=== PATIENT | female | born 1985 | race Caucasian/White ===

== ENCOUNTER 2018-05-31 17:39 | Emergency (ER) | payer OTHER, MEDICAID | END 2018-05-31 20:02 | disposition home or self-care (01) | LOC: M ED 17:39 | DX: R04.0 Epistaxis (principal); S00.83XA Contusion of other part of head, initial encounter; V03.10XA Pedestrian on foot injured in collision with car, pick-up truck or van in traffic accident, initial encounter; Y92.410 Unspecified street and highway as the place of occurrence of the external cause | CPT/HCPCS: 70450 ==

== ENCOUNTER → 2018-08-02 | Outpatient (CLI) | payer BC, OTHER, MEDICAID ==
[~2018-08-02] MED LIST: CYCL10TA PO; IBUP-1022 PO
[2018-08-02 10:26] LABS: BASO % 0.2 % (0.0-1.0); EOS # 0.1 10^3/uL (0.0-0.50); HEMATOCRIT 38.3 % (36.0-47.0); HEMOGLOBIN 13.1 g/dl (12.0-15.5); LYMPH # 1.7 10^3/uL (1.5-4.5); LYMPH % 35.5 % (24.0-44.0); MEAN CORPUSCULAR HEMOGLOBIN 32.4 pg (27.0-33.0); MEAN CORPUSCULAR HGB CONC 34.2 g/dl (32.0-36.5); MEAN CORPUSCULAR VOLUME 94.8 fl (80.0-96.0); MONO # 0.6 10^3/uL (0.0-0.8); MONO % 13.4 % (0.0-5.0); NEUTROPHILS # 2.3 10^3/uL (1.8-7.7); NEUTROPHILS % 47.7 % (36.0-66.0); PLATELET COUNT, AUTOMATED 244 10^3/uL (150-450); RED BLOOD COUNT 4.04 10^6/uL (4.00-5.40); WHITE BLOOD COUNT 4.7 10^3/uL (4.0-10.0)
[2018-08-02 10:40] LABS: HEMOGLOBIN A1c 4.6 %
[2018-08-02 10:54] LABS: ALBUMIN 4.1 GM/DL (3.2-5.2); ALT/SGPT 30 U/L (12-78); BILIRUBIN,TOTAL 0.6 MG/DL (0.2-1.0); BLOOD UREA NITROGEN 8 MG/DL (7-18); CALCIUM LEVEL 9.2 MG/DL (8.5-10.1); CARBON DIOXIDE LEVEL 26 MEQ/L (21-32); CHLORIDE LEVEL 108 MEQ/L (98-107); CREATININE FOR GFR 0.55 MG/DL (0.55-1.30); FERRITIN 54 NG/ML (8-252); GLOMERULAR FILTRATION RATE > 60.0 (>60); GLUCOSE, FASTING 90 MG/DL (70-100); IRON (FE) 128 UG/DL (50-170); PERCENT SATURATION 48.7 % (13.2-45.0); POTASSIUM SERUM 4.8 MEQ/L (3.5-5.1); SODIUM LEVEL 141 MEQ/L (136-145); TOTAL IRON BINDING CAPACITY 263 UG/DL (250-450); TOTAL PROTEIN 7.5 GM/DL (6.4-8.2)
[2018-08-02 10:58] LABS: TOTAL 25(OH) VITAMIN D 23.5 NG/ML (30.0-100.0)
== END ==
LOC: M SMT 08:46
PROVIDERS: ATTEND Physician Assistant
DX: R53.83 Other fatigue (principal); Z13.0 Encounter for screening for diseases of the blood and blood-forming organs and certain disorders involving the immune mechanism; Z13.1 Encounter for screening for diabetes mellitus

== ENCOUNTER → 2019-05-03 | Outpatient (REF) | payer OTHER, MEDICAID | LOC: M SFHCPLAZ 13:05 | PROVIDERS: ATTEND Dermatology | DX: D22.5 Melanocytic nevi of trunk (principal) ==

== ENCOUNTER → 2019-06-24 | Outpatient (CLI) | payer BC, OTHER ==
--- NOTE | 2019-06-24 11:16 | REP ---
DIGITAL DIAGNOSTIC BILATERAL MAMMOGRAPHY, 3D TOMOGRAPHY, AND FOCUSED LEFT BREAST SONOGRAPHY: HISTORY: Left breast lump inferiorly and medially. MAMMOGRAPHIC FINDINGS: A skin marker is affixed to the skin at the site of the palpable lump. Routine views are augmented by magnified focal spot compression images of the left breast in CC, true mediolateral, and MLO projections. There is no evidence of soft tissue mass visible mammographically at the site of the palpable lump or elsewhere. Breast parenchyma is extremely dense in a pattern which may inhibit the sensitivity of mammography. No microcalcification, architectural distortion, or worrisome skin changes appreciated. 3D tomography shows no additional abnormality. SONOGRAPHIC FINDINGS: The left breast is scanned from 6-o'clock to 8-o'clock position with the palpable area at approximately 7-o'clock position. Heterogeneous fibroglandular background echotexture is seen. No cyst or mass is observed sonographically. No sonographically suspicious finding. IMPRESSION: BIRADS 1: BI-RADS/ACR category 1 mammogram. Negative Mammogram. BI-RADS category 1 negative findings. Clinical followup is advised. This mammogram was interpreted with the aid of an FDA-approved computer-aided detection system. The patient states she had a clinical breast exam in May,. The patient letter being requested is M2, dense Screening mammography recommended at age 42. Electronically Signed by Nael Angela MD 06/24/2019 12:08 P
== END ==
LOC: M RAD 09:16
PROVIDERS: ATTEND Obstetrics & Gynecology
DX: N63.24 Unspecified lump in the left breast, lower inner quadrant (principal)
CPT/HCPCS: 76642; 77066; G0279

== ENCOUNTER → 2019-12-28 | Outpatient (CLI) | payer BC, OTHER ==
[~2019-12-28] MED LIST changes: +CYCL-707 PO; -CYCL10TA PO
== END ==
LOC: M LABSMTC 10:02
PROVIDERS: ATTEND Family Medicine
DX: Z11.59 Encounter for screening for other viral diseases (principal)
CPT/HCPCS: C9803; U0003

== ENCOUNTER 2020-08-02 22:46 | Inpatient (IN) | payer BC, OTHER ==
[~2020-08-02] VITALS: Ht 162.6 cm; Wt 78.2 kg
[2020-08-02] MEDS ORDERED: PENICILLIN G POTASSIUM IV 5 MU in D5W MINI-BAG PLUS 100 ML IV STA (23:34)
[2020-08-02] MEDS ORDERED: LACTATED RINGER'S 1000 ML IV STA (23:34)
[2020-08-03] VITALS (49 sets, daily range): BP systolic 95–142; BP diastolic 53–83
[2020-08-03 00:11] LABS: HEMATOCRIT 36.8 % (36.0-47.0); HEMOGLOBIN 12.4 g/dl (12.0-15.5); MEAN CORPUSCULAR HEMOGLOBIN 31.2 pg (27.0-33.0); MEAN CORPUSCULAR HGB CONC 33.7 g/dl (32.0-36.5); MEAN CORPUSCULAR VOLUME 92.7 fl (80.0-96.0); PLATELET COUNT, AUTOMATED 208 10^3/uL (150-450); RED BLOOD COUNT 3.97 10^6/uL (4.00-5.40); WHITE BLOOD COUNT 20.3 10^3/uL (4.0-10.0)
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
[2020-08-03] MEDS: PENICILLIN G POTASSIUM IV 2.5 MU in IV 1 EA IV SCH ×4 (04:24→16:30)
[2020-08-03] MEDS: LR 1,000 ML IV SCH ×3 (04:24→16:30)
--- NOTE | 2020-08-03 04:47 | IPNPDOC ---
Obstetrical Progress Note Date of Service Aug 03, 2020 Subjective States contractions feel the same some are stronger but she doesn't feel she has made change. She was able to rest in between contractions. Objective Bedside U/S shows vertex, OP presentation. AROM for small amount of meconium stained fluid. Vital Signs Label Value Date Time Patient Temperature 98.8 degrees F 08/03/20221 Pulse 87 08/03/20221 Blood Pressure Assessment 120/72 (88) 08/03/20221 Source Automatic Cuff (NIBP) Patient Temperature 98.6 degrees F 08/03/20422 Pulse 88 08/03/20422 Blood Pressure Assessment 124/76 (92) 08/03/20422 Source Automatic Cuff (NIBP) Assessment Heart Rate (FHR): 135 Variability: Moderate Accelerations: Positive Decelerations: None Heart Rate Tracing: Category I Tocometer Contractions: Yes Frequency: regular, other (4-5 min) Duration: greater than 60 seconds Strength: palpated as mod/strong, resting tone palp/soft Sterile Vaginal Examination Dilation: 6 cm Effacement (%): 100% Station: 0 Cervical Consistency: Soft Cervical Position: Anterior Postion/Presentation: Cephalic presentation (OP by ultrasound) Assessment and Plan Age: 35 : 2 Term: 0 Pre-term: 0 Abortions: 1 Livin EGA at Admission: 42.0 Status: Reassuring Group B Streptococcus: Positive Anticipate: Vaginal Delivery NYDIA MATHUR CNM Aug 03, 2020 04:46
--- NOTE | 2020-08-03 09:13 | IPNPDOC ---
Obstetrical Progress Note Date of Service Aug 03, 2020 Subjective Lesli is feeling stronger contractions but becoming tired. Objective Controlled breathing through contractions, tolerating contractions well. Vital Signs Date Time Temp Pulse Resp B/P (MAP) Pulse Ox O2 Delivery O2 Flow Rate FiO2 08/03/20 07:47 98.3 76 18 126/68 (87) Assessment Heart Rate (FHR): 140 Variability: Moderate Accelerations: Positive Decelerations: None Heart Rate Tracing: Category I Tocometer Contractions: Yes Frequency: other (7-8 minutes) Duration: greater than 60 seconds Strength: palpated as moderate, resting tone palp/soft Sterile Vaginal Examination Dilation: 6 cm Effacement (%): 100% Station: 0 Cervical Consistency: Soft Cervical Position: Anterior Postion/Presentation: Cephalic presentation Assessment and Plan Age: 35 : 2 Term: 0 Pre-term: 0 Abortions: 1 Livin Weeks & Days 42.0 Status: Reassuring Group B Streptococcus: Positive Anticipate: Vaginal Delivery Additional Comments Discussed options for starting Pitocin and pain management options. Offered C/Section as well. Patient opting to start Pitocin and IV pain management at this time. Jessica Bautista CNM Aug 03, 2020 09:13
[2020-08-03] MEDS ORDERED: LR 1,000 ML IV SCH (09:16)
[2020-08-03] MEDS ORDERED: BUTORPHANOL 2 MG/ML INJ (J0595) IV ONE (09:30)
[2020-08-03] MEDS ORDERED: OXYTOCIN DRIP 30 UNITS in IV 1 EA IV SCH ×2 (09:30→21:24)
[2020-08-03] MEDS ORDERED: PROMETHAZINE INJ 25 MG/ML VIAL (J2550) IV ONE (09:30)
[2020-08-03 10:40] LABS: HIV 1&2 SCREEN CENTAUR NEGATIVE (NEGATIVE)
[2020-08-03] MEDS ORDERED: FENTANYL 2MCG/ML ROPIVACAINE 0.2% IN 0.9% NACL 100ML IVBAG As Ordered ONE (11:49)
[2020-08-03] MEDS ORDERED: REFRIGERATOR IV KEYS XX PRN (13:00)
[2020-08-03] MEDS ORDERED: EPIDURAL/PCA KEYS XX PRN (13:00)
[2020-08-03] MEDS ORDERED: diphenhydrAMINE 50MG/ML VIAL (J1200) IV PRN (13:00)
[2020-08-03] MEDS ORDERED: NALOXONE INJ 0.4MG/1ML VIAL (J2310 PER 1MG) IV PRN (13:00)
[2020-08-03] MEDS ORDERED: EPIDURAL COMMENT XX SCH (13:00)
[2020-08-03] MEDS ORDERED: FENTANYL/ROPIVACAINE/NACL BAG 100 ML EPIDURAL SCH (13:00)
[2020-08-03] MEDS ORDERED: LACTATED RINGER'S 1000 ML IV PRN (13:00)
[2020-08-03] MEDS ORDERED: ONDANSETRON 4MG/2ML VIAL IV PRN (13:00)
--- NOTE | 2020-08-03 16:02 | IPNPDOC ---
Text Note Date of Service The patient was seen on 08/03/20. NOTE Inpatient Subjective: Lesli is comfortable with her epidural and has gotten some sleep. Changing position frequently with peanut ball in place. Denies urge to push. Objective: VS normotensive, afebrile General: Alert and oriented x3. Fetus: 135bpm baseline, moderate variability, positive accelerations, variable and late decelerations [place]: UC every 2-4 minutes, lasting 60-110 seconds, palpated moderate, resting tone soft Pitocin decreased to 8 mu/min. SVE 8/100/+1, anterior, minimal caput noted by NADIA Lopez Plan: Discussed FHT and slow progression of labor with patient and partner. Offered for continuation of Pitocin as long as fetus tolerates or C/Section. Patient opting for continuation of Pitocin and time. Dr Robbins updated and agrees with plan. VS,Fishbone, I+O VS, Fishbone, I+O Laboratory Tests 08/02/20 23:25 Vital Signs Date Time Temp Pulse Resp B/P (MAP) Pulse Ox O2 Delivery O2 Flow Rate FiO2 08/03/20 12:10 74 18 117/78 (91) 08/03/20 10:35 98.1 Jessica Bautista CNM Aug 03, 2020 16:02
[2020-08-03] MEDS: ePHEDrine SULFATE 25 MG/5 ML(5MG/ML) SYRINGE IV PRN ×2 (16:23→16:38)
--- NOTE | 2020-08-03 18:54 | IPNPDOC ---
Text Note Date of Service The patient was seen on 08/03/20. NOTE Inpatient Subjective: Reports feeling intermittent rectal pressure, otherwise comfortable with her epidural. Objective: SVE: 100/+1 by NADIA Lopez Moderate amount of bloody show noted on bed Fetus: 150bpm baseline, moderate variability, positive accelerations, occa sional variable decelerations noted, reassuring, Category 2 FHT [place]: UC every 2-3min, 60-110 seconds long, some coupling of contractions noted Plan: Labor down until Lesli feels urge to push up to 1 hour. VS,Fishbone, I+O VS, Fishbone, I+O Laboratory Tests 08/02/20 23:25 Vital Signs Date Time Temp Pulse Resp B/P (MAP) Pulse Ox O2 Delivery O2 Flow Rate FiO2 08/03/20 18:14 65 125/75 (92) 08/03/20 17:44 98.4 08/03/20 16:47 18 Jessica Bautista CNM Aug 03, 2020 18:54
[2020-08-03] MEDS ORDERED: RHOGAM 300 MCG (1500 IU) INJ (J2790) IM SCH (21:30)
[2020-08-03] MEDS ORDERED: BENZOCAINE 20% HEMORRHOIDAL OINTMENT 28GM TUBE TOP PRN (21:30)
[2020-08-03] MEDS ORDERED: ANUSOL HC CREAM 30GM TOP PRN (21:30)
[2020-08-03] MEDS ORDERED: MOM 30ML SUSPENSION UDC PO PRN (21:30)
[2020-08-03] MEDS ORDERED: ACETAMINOPHEN 500 MG TAB PO PRN (21:30)
[2020-08-03] MEDS ORDERED: DOCUSATE SODIUM 100MG CAPSULE PO PRN (21:30)
[2020-08-03] MEDS ORDERED: IBUPROFEN 600MG TAB PO PRN (21:30)
[2020-08-03] MEDS ORDERED: METHYLERGONOVINE MALEATE 0.2 MG TAB PO PRN (21:30)
[2020-08-03] MEDS ORDERED: IBUPROFEN 800 MG TAB PO PRN (21:30)
[2020-08-03] MEDS ORDERED: ACETAMINOPHEN TAB 650MG DOSE (2X325MG) PO PRN (21:30)
[2020-08-03] MEDS ORDERED: MEASLES,MUMPS,RUBELLA VACCINE INJ (MMR-II) (90707) SC SCH (21:30)
[2020-08-03 21:35] LABS: CORD GAS ABE V -11.1; CORD GAS O2 SAT V 75.4 %; CORD GAS PCO2 V 45.2 mmHg; CORD GAS PH V 7.192 UNITS; CORD GAS SBC V 15.5 MEQ/L; CORD GAS TCO2 V 18.3 MEQ/L
[2020-08-03 21:37] LABS: CORD GAS ABE A -16.4; CORD GAS HCO3 A 15.5 MEQ/L; CORD GAS O2 SAT A 51.1 %; CORD GAS PCO2 A 61.4 mmHg; CORD GAS PH A 7.02 UNITS; CORD GAS PO2 A 30.7 mmHg; CORD GAS SBC A 11.8 MEQ/L; CORD GAS TCO2 A 17.4 MEQ/L
--- NOTE | 2020-08-03 21:44 | DNPDOC ---
[facility] Delivery Note Delivery Note DATE OF DELIVERY: 08/03/2020 @ 2049 PREDELIVERY DIAGNOSIS: 42-0/7 weeks' gestation and labor. POST DELIVERY DIAGNOSIS: Delivered. PROCEDURE: Spontaneous vaginal delivery PROVIDER: Bri Bautista CNM and NADIA Vera ANESTHESIA: Epidural. ESTIMATED BLOOD LOSS: 300 mL. FINDINGS: 7 pound 13 ounce, 3530g Male , Score 7/9, loose nuchal cord times 1, meconium stained fluid. DELIVERY SUMMARY: Lesli is a 35-year-old 2 now para 1-0-1-1 who was admitted to labor and delivery in active labor, stalled at 6cm. Pitocin augmentation and an epidural resulted in full dilation at 1754. head delivered THELMA with restitution to ROT, anterior shoulder delivered with gentle downward traction and corpus followed with ease. Loose nuchal cord was reduced prior to delivery of shoulders. Infant stimulated, spontaneous cries and placed skin to skin on maternal abdomen. Cord clamped x2 and cut by FOB. Cord blood gases and cord blood collected. Arterial cord ph 7.020, base excess - 16.4, Venous cord pH 7.192, base excess -11.1. 3 Vessel cord noted. Intact placenta delivered via Quevedo mechanism at 2103. Fundal massage, IV Pitocin bolus, and 1000mcg Cytotec MO given. Fundus firm at U-1, small flow. Perineum, vagina, and cervix inspected, right labial abrasion repaired with a 3-0 Vicryl with good approximation and hemostasis. Lesli plans to breastfeed her infant. and mother left in stable condition. Sponge, sharp and instrument count correct. Jessica Bautista CNM Aug 03, 2020 21:44
[2020-08-04 06:00] VITALS: BP 109/56
--- NOTE | 2020-08-04 07:35 | IPNPDOC ---
Text Note Date of Service The patient was seen on 08/04/20. NOTE PP#1 Feels well. Happy with experience. . Adequate pain management. Voiding VSS, afebrile, normotensive Breasts soft, nipples intact Fundus firm, NT, down 1 FB Perineum intact Lochia scant, without odor PP #1 Routine care. Anticipate D/C in am VS,Fishbone, I+O VS, Fishbone, I+O Vital Signs Date Time Temp Pulse Resp B/P (MAP) Pulse Ox O2 Delivery O2 Flow Rate FiO2 08/04/20 06:00 97.5 70 14 109/56 (73) I&O- Last 24 Hours up to 6 AM 08/04/20 06:00 Intake Total 240 ml Output Total 1600 ml Balance -1360 ml Jessica Bautista CNM Aug 04, 2020 07:35
[2020-08-04] MEDS ORDERED: INFLUENZA QUADRIVALENT PF VACCINE 0.5ML SYRINGE IM ONE (09:00)
[2020-08-04] MEDS: PRENATAL VITAMINS CHEWABLE TABLET PO SCH (10:45)
[2020-08-04 18:00] VITALS: BP 131/60
[2020-08-05 06:00] VITALS: BP 121/79
[2020-08-05] MEDS: PRENATAL VITAMINS CHEWABLE TABLET PO SCH (09:00)
== END 2020-08-05 17:50 | disposition home or self-care (01) | DRG 560 ==
LOC: M LDO 22:46 → M LDI 23:36 → M OBS 08-03 22:58
PROVIDERS: ADMIT Advanced Practice Midwife; ATTEND Advanced Practice Midwife
PROC: 10E0XZZ Delivery of Products of Conception, External Approach (ICD-10-PCS; principal; 2020-08-03)
DX: O76 Abnormality in fetal heart rate and rhythm complicating labor and delivery (principal); O48.0 Post-term pregnancy; O99.820 Streptococcus B carrier state complicating pregnancy; Z37.0 Single live birth; Z3A.42 42 weeks gestation of pregnancy; O77.0 Labor and delivery complicated by meconium in amniotic fluid; O69.81X0 Labor and delivery complicated by cord around neck, without compression, not applicable or unspecified

== ENCOUNTER → 2020-11-13 | Outpatient (REF) | payer OTHER | LOC: M SFHCWAGY 12:38 | PROVIDERS: ATTEND Advanced Practice Midwife | DX: Z12.4 Encounter for screening for malignant neoplasm of cervix (principal) | CPT/HCPCS: 87624; G0123 ==

== ENCOUNTER → 2020-11-28 | Outpatient (REF) | payer OTHER | LOC: M SFHCWAGY 16:43 | PROVIDERS: ATTEND Advanced Practice Midwife | DX: Z11.3 Encounter for screening for infections with a predominantly sexual mode of transmission (principal) ==

== ENCOUNTER → 2021-04-22 | Outpatient (CLI) | payer BC, OTHER ==
--- NOTE | 2021-04-22 12:20 | REP ---
INDICATION: SOLITARY CYST OF RT BREAST, LONGITUDINAL CYST 4-5. COMPARISON: None TECHNIQUE: Real-time sonographic evaluation of right breast performed. FINDINGS: At the site of a palpable lump at 4 o'clock right breast there is a mildly dilated duct which is compressible. No intraluminal nodule is seen within the duct. IMPRESSION: BIRADS/ACR category 2, benign. At the site of the palpable lump 4 o'clock right breast there is a mildly dilated duct which is compressible. There is no intraluminal suspicious nodule. RECOMMENDATION: Clinical follow-up. <Electronically signed by Sam Walters > 04/22/21 [id number]
== END ==
LOC: M WHC 11:14
PROVIDERS: ATTEND Advanced Practice Midwife
DX: N60.01 Solitary cyst of right breast (principal)

== ENCOUNTER → 2021-09-09 | Outpatient (CLI) | payer BC, OTHER ==
[2021-09-09 09:40] LABS: BASO % 0.5 % (0.0-1.0); EOS # 0.1 10^3/uL (0.0-0.5); EOS % 1.9 % (0.0-3.0); HEMATOCRIT 37.9 % (36.0-47.0); LYMPH # 2.3 10^3/uL (1.5-5.0); LYMPH % 39.4 % (24.0-44.0); MEAN CORPUSCULAR HEMOGLOBIN 31.3 pg (27.0-33.0); MEAN CORPUSCULAR HGB CONC 34.3 g/dl (32.0-36.5); MEAN CORPUSCULAR VOLUME 91.1 fl (80.0-96.0); MONO # 0.6 10^3/uL (0.0-0.8); MONO % 11.1 % (2.0-8.0); NEUTROPHILS # 2.7 10^3/uL (1.5-8.5); NEUTROPHILS % 46.8 % (36.0-66.0); PLATELET COUNT, AUTOMATED 192 10^3/uL (150-450); RED BLOOD COUNT 4.16 10^6/uL (4.00-5.40); WHITE BLOOD COUNT 5.8 10^3/uL (4.0-10.0)
[2021-09-09 10:16] LABS: ALBUMIN 4.3 GM/DL (3.2-5.2); ALT/SGPT 23 U/L (12-78); BILIRUBIN,TOTAL 0.6 MG/DL (0.2-1.0); BLOOD UREA NITROGEN 12 MG/DL (7-18); CALCIUM LEVEL 9.1 MG/DL (8.5-10.1); CARBON DIOXIDE LEVEL 27 MEQ/L (21-32); CHLORIDE LEVEL 109 MEQ/L (98-107); CHOLESTEROL LEVEL 173 MG/DL (<200); CHOLESTEROL RISK RATIO 3.089 (<5); CREATININE FOR GFR 0.59 MG/DL (0.55-1.30); FREE T4 0.93 NG/DL (0.76-1.46); GLOMERULAR FILTRATION RATE > 60.0 (>60); GLUCOSE, FASTING 87 MG/DL (70-100); HDL CHOLESTEROL 56 MG/DL (>40); LDL CHOLESTEROL 104 MG/DL (<100); NON-HDL-C 117 MG/DL; POTASSIUM SERUM 4.2 MEQ/L (3.5-5.1); SODIUM LEVEL 140 MEQ/L (136-145); TOTAL PROTEIN 8.1 GM/DL (6.4-8.2); TRIGLYCERIDES LEVEL 66 MG/DL (<150)
== END ==
LOC: M LAB 08:46
PROVIDERS: ATTEND Physician Assistant
DX: S80.862A Insect bite (nonvenomous), left lower leg, initial encounter (principal); Z13.220 Encounter for screening for lipoid disorders; Z13.0 Encounter for screening for diseases of the blood and blood-forming organs and certain disorders involving the immune mechanism; Z13.29 Encounter for screening for other suspected endocrine disorder

== ENCOUNTER → 2022-10-20 | Outpatient (CLI) | payer BC, OTHER | LOC: M WHC 09:59 | PROVIDERS: ATTEND Midwife | DX: Z34.80 Encounter for supervision of other normal pregnancy, unspecified trimester (principal); Z3A.01 Less than 8 weeks gestation of pregnancy ==

== ENCOUNTER → 2022-11-10 | Outpatient (CLI) | payer BC, OTHER ==
[2022-11-10 15:33] LABS: HEMATOCRIT 36.5 % (36.0-47.0); HEMOGLOBIN 12.5 g/dl (12.0-15.5); MEAN CORPUSCULAR HEMOGLOBIN 31.7 pg (27.0-33.0); MEAN CORPUSCULAR HGB CONC 34.2 g/dl (32.0-36.5); MEAN CORPUSCULAR VOLUME 92.6 fl (80.0-96.0); PLATELET COUNT, AUTOMATED 210 10^3/uL (150-450); RED BLOOD COUNT 3.94 10^6/uL (4.00-5.40)
[2022-11-10 16:03] LABS: HIV 1&2 SCREEN CENTAUR NEGATIVE (NEGATIVE)
[2022-11-10 16:26] LABS: GC DNA AMPLIFICATION NEGATIVE (NEGATIVE)
== END ==
LOC: M PLALAB 11:04
PROVIDERS: ATTEND Specialist
DX: Z34.81 Encounter for supervision of other normal pregnancy, first trimester (principal)

== ENCOUNTER → 2022-11-25 | Outpatient (CLI) | payer BC, OTHER | LOC: M PLALAB 14:29 | PROVIDERS: ATTEND Specialist | DX: Z34.81 Encounter for supervision of other normal pregnancy, first trimester (principal) ==

== ENCOUNTER → 2023-04-07 | Outpatient (CLI) | payer BC, OTHER ==
[2023-04-07 15:44] LABS: HEMOGLOBIN 11.1 g/dl (12.0-15.5); MEAN CORPUSCULAR HEMOGLOBIN 32.1 pg (27.0-33.0); MEAN CORPUSCULAR HGB CONC 33.6 g/dl (32.0-36.5); MEAN CORPUSCULAR VOLUME 95.4 fl (80.0-96.0); PLATELET COUNT, AUTOMATED 206 10^3/uL (150-450); RED BLOOD COUNT 3.46 10^6/uL (4.00-5.40); WHITE BLOOD COUNT 10.1 10^3/uL (4.0-10.0)
[2023-04-07 17:16] LABS: GC DNA AMPLIFICATION NEGATIVE (NEGATIVE)
== END ==
LOC: M PLALAB 11:48
PROVIDERS: ATTEND Obstetrics & Gynecology
DX: Z34.92 Encounter for supervision of normal pregnancy, unspecified, second trimester (principal)

== ENCOUNTER → 2023-05-07 | Outpatient (REF) | payer BC, OTHER | LOC: M SFHCWAGY 12:53 | PROVIDERS: ATTEND Advanced Practice Midwife | DX: O09.523 Supervision of elderly multigravida, third trimester (principal) ==

== ENCOUNTER 2023-06-09 08:23 | Inpatient (IN) | payer BC, OTHER ==
[2023-06-09] VITALS (9 sets, daily range): BP systolic 112–143; BP diastolic 64–84; O2SAT 97–99
[~2023-06-09] VITALS: Ht 160 cm; Wt 73.6 kg
[2023-06-09] MEDS ORDERED: LACTATED RINGER'S 1000 ML IV STA (08:46)
[2023-06-09] MEDS ORDERED: TRANEXAMIC ACID INJection 1,000 MG in NS 100 ML IV PRN (08:50)
[2023-06-09] MEDS ORDERED: OXYTOCIN DRIP 30 UNITS in IV 1 EA IV PRN (08:50)
[2023-06-09] MEDS ORDERED: METHYLERGONOVINE MALEATE 0.2MG/ML 1ML VIAL IM PRN (08:50)
[2023-06-09] MEDS ORDERED: LIDOCAINE 1% MDV 20ML VIAL INFIL PRN ×2 (08:50→11:20)
[2023-06-09] MEDS ORDERED: LR 1,000 ML IV SCH (08:50)
[2023-06-09] MEDS ORDERED: CARBOPROST TROMETHAMINE 250 MCG/ML AMP IM PRN (08:50)
[2023-06-09] MEDS ORDERED: OXYTOCIN 30UNITS IN 0.9% NaCl 500ML IV BAG As Ordered ONE (08:53)
[2023-06-09] MEDS ORDERED: MULTTAB20 PO (08:58)
[2023-06-09] MEDS ORDERED: HOME MED LIST COMPLETE! XX SCH (09:00)
[2023-06-09 09:12] LABS: MEAN CORPUSCULAR HEMOGLOBIN 31.3 pg (27.0-33.0); MEAN CORPUSCULAR HGB CONC 34.3 g/dl (32.0-36.5); MEAN CORPUSCULAR VOLUME 91.1 fl (80.0-96.0); PLATELET COUNT, AUTOMATED 223 10^3/uL (150-450); RED BLOOD COUNT 3.84 10^6/uL (4.00-5.40); WHITE BLOOD COUNT 15.1 10^3/uL (4.0-10.0)
[2023-06-09] MEDS ORDERED: METHYLERGONOVINE MALEATE 0.2 MG TAB PO PRN (11:00)
[2023-06-09] MEDS ORDERED: DIBUCAINE 1% OINTMENT 30GM TOP PRN (11:00)
[2023-06-09] MEDS ORDERED: ANUSOL HC CREAM 30GM TOP PRN (11:00)
[2023-06-09] MEDS ORDERED: DOCUSATE SODIUM 100MG CAPSULE PO PRN (11:00)
[2023-06-09] MEDS ORDERED: ACETAMINOPHEN 500 MG TAB PO PRN (11:00)
[2023-06-09] MEDS ORDERED: OXYTOCIN DRIP 30 UNITS in IV 1 EA IV SCH (11:00)
[2023-06-09] MEDS ORDERED: ACETAMINOPHEN TAB 650MG DOSE (2X325MG) PO PRN (11:00)
[2023-06-09] MEDS ORDERED: RHOGAM 300MCG (1500IU) INJ IM SCH (11:00)
[2023-06-09] MEDS ORDERED: IBUPROFEN 600MG TAB PO PRN (11:00)
[2023-06-09] MEDS ORDERED: IBUPROFEN 800 MG TAB PO PRN (11:00)
[2023-06-09 11:06] LABS: CORD GAS ABE A -8.8; CORD GAS ABE V -7.3; CORD GAS HCO3 V 19.8 MMOL/L; CORD GAS O2 SAT A 73.3 %; CORD GAS O2 SAT V 86.8 %; CORD GAS PCO2 A 53.1 mmHg; CORD GAS PCO2 V 45.4 mmHg; CORD GAS PH A 7.193 UNITS; CORD GAS PH V 7.258 UNITS; CORD GAS PO2 A 36.5 mmHg; CORD GAS PO2 V 45.3 mmHg; CORD GAS SBC V 18.5 MMOL/L; CORD GAS TCO2 A 21.6 MMOL/L; CORD GAS TCO2 V 21.2 MMOL/L
[2023-06-09] MEDS: LR 1,000 ML IV SCH ×2 (11:11→19:00)
[2023-06-09] MEDS ORDERED: SLF 3 ML SYR IV PRN (11:45)
[2023-06-09] MEDS ORDERED: SLF 3 ML SYR IV SCH (14:00)
[2023-06-10 06:33] VITALS: BP 110/67; O2SAT 98
[2023-06-10] MEDS ORDERED: PRENATAL VITAMINS CHEWABLE TABLET PO SCH (09:00)
[2023-06-11] MEDS ORDERED: MEASLES,MUMPS,RUBELLA VACCINE INJ (MMR-II) SC.IMMUN ONE (09:00)
== END 2023-06-10 18:00 | disposition home or self-care (01) | DRG 560 ==
LOC: M LDO 08:23 → M LDI 08:39 → M OBS 13:45
PROVIDERS: ADMIT Obstetrics & Gynecology; ATTEND Obstetrics & Gynecology
PROC: 10E0XZZ Delivery of Products of Conception, External Approach (ICD-10-PCS; principal; 2023-06-09)
PROC: 0HQ9XZZ Repair Perineum Skin, External Approach (ICD-10-PCS; 2023-06-09)
DX: O48.0 Post-term pregnancy (principal); O09.523 Supervision of elderly multigravida, third trimester; Z37.0 Single live birth; Z3A.40 40 weeks gestation of pregnancy; O70.0 First degree perineal laceration during delivery; O66.0 Obstructed labor due to shoulder dystocia

== ENCOUNTER → 2024-02-04 | Outpatient (REF) | payer BC ==
[~2024-02-04] MED LIST changes: +MULTTAB20 PO
[2024-02-06 16:07] LABS: HPV APTIMA Not Detected (Not Detected)
== END ==
LOC: M PLALAB 11:46
PROVIDERS: ATTEND Advanced Practice Midwife
DX: Z12.4 Encounter for screening for malignant neoplasm of cervix (principal)
CPT/HCPCS: 87624; G0123